=== PATIENT | female | born 1985 | race Caucasian/White ===

== ENCOUNTER 2019-02-20 22:32 | Emergency (ER) | payer MEDICAID, SELFPAY ==
[~2019-02-20] VITALS: Ht 168.9 cm; Wt 67.4 kg
[2019-02-20 22:34] VITALS: BP 126/77
[2019-02-21] MEDS ORDERED: cefTRIAXone SOD 1 GM VIAL (J0696) IM ONE (00:30)
[2019-02-21] MEDS ORDERED: LIDOCAINE 1% SDV 5 ML VIAL DILUENT ONE (00:30)
[2019-02-21] MEDS ORDERED: ACETAMINOPHEN 325 MG TAB PO ONE (01:15)
[2019-02-21] MEDS ORDERED: IBUPROFEN 600 MG TAB PO ONE (01:15)
[2019-02-21] MEDS ORDERED: BACTRIM 160MG/800MG DS TAB PO ONE (01:45)
[2019-02-21] MEDS ORDERED: BACT800T5 PO (01:53)
--- NOTE | 2019-02-21 08:25 | REP ---
LEFT HAND COMPLETE: 02/21/2019. Clinical history: Cellulitis, rule out osteomyelitis. Findings: No prior studies. Four views were provided. There is prominent soft tissue swelling over the dorsal aspect of the hand consistent with the clinical history. I see no destructive bone lesion, fracture, avulsion or erosion distal radius and ulna, carpal bones, metacarpals and phalanges and all of the joints were unremarkable. Impression: 1. Prominent soft tissue swelling dorsal aspect of the hand, no plain radiographic evidence for osteomyelitis. Otherwise negative left hand series. Please recall that osteomyelitis may not be radiographically diagnosed and told 50% of bone structure lost in the region involved. Additional imaging should be guided by clinical considerations. Electronically Signed by Duane Chaves MD 02/21/2019 08:16 A
== END 2019-02-21 02:00 | disposition left against medical advice (07) ==
LOC: M ED 22:32
DX: L03.114 Cellulitis of left upper limb (principal); Z72.0 Tobacco use; Z86.59 Personal history of other mental and behavioral disorders
CPT/HCPCS: 73130; 96372; 99282; J0696

== ENCOUNTER → 2020-10-29 | Outpatient (REF) | payer MEDICAID ==
[~2020-10-29] MED LIST: BACT800T5 PO
== END ==
LOC: M LAB REF 11:40
PROVIDERS: ATTEND Physician Assistant
DX: Z12.4 Encounter for screening for malignant neoplasm of cervix (principal)

== ENCOUNTER → 2021-11-29 | Outpatient (CLI) | payer OTHER ==
[2021-11-29 15:38] LABS: HEMATOCRIT 34.7 % (36.0-47.0); HEMOGLOBIN 11.7 g/dl (12.0-15.5); MEAN CORPUSCULAR HEMOGLOBIN 31.6 pg (27.0-33.0); MEAN CORPUSCULAR HGB CONC 33.7 g/dl (32.0-36.5); MEAN CORPUSCULAR VOLUME 93.8 fl (80.0-96.0); PLATELET COUNT, AUTOMATED 159 10^3/uL (150-450); WHITE BLOOD COUNT 11.1 10^3/uL (4.0-10.0)
[2021-11-29 16:31] LABS: HEPATITIS C VIRUS ABY INDEX 0.1 INDEX (<0.8); HIV 1&2 SCREEN CENTAUR NEGATIVE (NEGATIVE)
[2021-11-29 17:23] LABS: GC DNA AMPLIFICATION NEGATIVE (NEGATIVE)
== END ==
LOC: M PLALAB 12:40
PROVIDERS: ATTEND Obstetrics & Gynecology
DX: O09.32 Supervision of pregnancy with insufficient antenatal care, second trimester (principal)

== ENCOUNTER → 2021-11-29 | Outpatient (CLI) | payer OTHER | LOC: M PLALAB 12:39 | PROVIDERS: ATTEND Advanced Practice Midwife | DX: O09.33 Supervision of pregnancy with insufficient antenatal care, third trimester (principal) ==

== ENCOUNTER → 2021-12-15 | Outpatient (CLI) | payer OTHER | LOC: M WHC 14:46 | PROVIDERS: ATTEND Obstetrics & Gynecology | DX: O09.33 Supervision of pregnancy with insufficient antenatal care, third trimester (principal); Z3A.33 33 weeks gestation of pregnancy ==

== ENCOUNTER 2022-01-28 15:08 | Outpatient (CLI) | payer OTHER ==
[~2022-01-28] VITALS: Ht 167.6 cm; Wt 81.7 kg
[2022-01-28 15:27] VITALS: BP 109/63
[2022-01-28] MEDS ORDERED: GABA-283 PO (15:35)
[2022-01-28] MEDS ORDERED: VENTAER INH (15:35)
[2022-01-28] MEDS ORDERED: BUPR8SUB SL (15:35)
[2022-01-28] MEDS ORDERED: ACET-897 PO (15:36)
[2022-01-28] MEDS ORDERED: HOME MED LIST COMPLETE! XX SCH (15:40)
[2022-01-28] MEDS ORDERED: ACETAMINOPHEN 500 MG TAB PO ONE (16:00)
[2022-01-28 16:27] VITALS: BP 115/62
== END 2022-01-28 16:30 | disposition home or self-care (01) ==
LOC: M LDO 15:08
PROVIDERS: ATTEND Specialist
DX: O26.893 Other specified pregnancy related conditions, third trimester (principal); M54.50 Low back pain, unspecified; O09.513 Supervision of elderly primigravida, third trimester; Z3A.39 39 weeks gestation of pregnancy

== ENCOUNTER → 2022-03-09 | Outpatient (CLI) | payer OTHER ==
[~2022-03-09] MED LIST changes: +ACET-897 PO; +BUPR8SUB SL; +GABA-283 PO; +VENTAER INH
== END ==
LOC: M SOG 16:20
PROVIDERS: ATTEND Orthopaedic Surgery Hand Surgery
DX: S52.501D Unspecified fracture of the lower end of right radius, subsequent encounter for closed fracture with routine healing (principal); S52.611D Displaced fracture of right ulna styloid process, subsequent encounter for closed fracture with routine healing

== ENCOUNTER 2022-08-09 11:27 | Emergency (ER) | payer OTHER ==
[~2022-08-09] VITALS: Ht 172.7 cm; Wt 67.8 kg
[2022-08-09] MEDS ORDERED: BUPR1SUB35 (11:57)
[2022-08-09] MEDS ORDERED: BUPR1FIL35 (11:57)
[2022-08-09] MEDS ORDERED: GABA800T4 (11:57)
[2022-08-09 15:39] LABS: AMPHETAMINES LEVEL URINE NEGATIVE (NEGATIVE); BARBITURATES URINE NEGATIVE (NEGATIVE); BENZODIAZEPINES URINE NEGATIVE (NEGATIVE); CANNABINOIDS URINE NEGATIVE (NEGATIVE); COCAINE METABOLITE URINE NEGATIVE (NEGATIVE); METHADONE URINE NEGATIVE (NEGATIVE); OPIATES URINE NEGATIVE (NEGATIVE); PHENCYCLIDINE URINE NEGATIVE (NEGATIVE)
[2022-08-09 16:00] LABS: BASO # 0.1 10^3/uL (0.0-0.2); BASO % 0.8 % (0.0-1.0); EOS # 0.2 10^3/uL (0.0-0.5); HEMATOCRIT 42.3 % (36.0-47.0); HEMOGLOBIN 13.5 g/dl (12.0-15.5); LYMPH # 3.8 10^3/uL (1.5-5.0); LYMPH % 48.1 % (24.0-44.0); MEAN CORPUSCULAR HEMOGLOBIN 29.2 pg (27.0-33.0); MEAN CORPUSCULAR HGB CONC 31.9 g/dl (32.0-36.5); MEAN CORPUSCULAR VOLUME 91.4 fl (80.0-96.0); MONO # 0.4 10^3/uL (0.0-0.8); MONO % 5.5 % (2.0-8.0); NEUTROPHILS # 3.4 10^3/uL (1.5-8.5); NEUTROPHILS % 42.3 % (36.0-66.0); PLATELET COUNT, AUTOMATED 243 10^3/uL (150-450); RED BLOOD COUNT 4.63 10^6/uL (4.00-5.40)
[2022-08-09 16:04] LABS: ETHYL ALCOHOL (ETHANOL) 0.003 % (0.000-0.010); MAGNESIUM LEVEL 1.9 MG/DL (1.8-2.4)
[2022-08-09 16:08] LABS: FREE T4 0.94 NG/DL (0.89-1.76); THYROID STIMULATING HORMONE 0.887 uIU/ML (0.55-4.78)
[2022-08-09 16:10] LABS: BLOOD UREA NITROGEN 10 MG/DL (9-23); CALCIUM LEVEL 8.3 MG/DL (8.5-10.1); CARBON DIOXIDE LEVEL 22 MMOL/L (20-31); CHLORIDE LEVEL 107 MMOL/L (98-107); CREATININE FOR GFR 0.51 MG/DL (0.55-1.30); GLOMERULAR FILTRATION RATE > 60.0 (>60); GLUCOSE, FASTING 81 MG/DL (60-100); POTASSIUM SERUM 5.3 MMOL/L (3.5-5.1); SODIUM LEVEL 138 MMOL/L (136-145)
[2022-08-09] MEDS ORDERED: PROHANCE 279.3MG/ML 15ML VIAL As Ordered ONE (17:30)
[2022-08-09] MEDS ORDERED: KEPP1TAB PO (20:47)
[2022-08-09 21:26] VITALS: BP 127/67
== END 2022-08-09 21:24 | disposition home or self-care (01) ==
LOC: M ED 11:27
DX: R56.9 Unspecified convulsions (principal); D18.02 Hemangioma of intracranial structures; F11.10 Opioid abuse, uncomplicated; F17.210 Nicotine dependence, cigarettes, uncomplicated; M50.20 Other cervical disc displacement, unspecified cervical region; Z79.899 Other long term (current) drug therapy
CPT/HCPCS: 36415; 70450; 70553; 80048; 80307; 82077; 83735; 84439; 84443; 85025; 99284; A9576

== ENCOUNTER 2022-11-02 12:50 | Emergency (ER) | payer OTHER ==
[~2022-11-02] VITALS: Ht 172.7 cm; Wt 64.1 kg
[~2022-11-02 12:50] MED LIST changes: +BUPR1FIL35; +BUPR1SUB35; +GABA800T4; +KEPP1TAB PO
[2022-11-02] MEDS ORDERED: OXcarbazepine 300 MG TAB PO STA ×2 (13:18→15:32)
[2022-11-02 13:52] LABS: BASO % 0.3 % (0.0-1.0); EOS % 0.1 % (0.0-3.0); HEMATOCRIT 46.8 % (36.0-47.0); HEMOGLOBIN 15.3 g/dl (12.0-15.5); LYMPH # 1.2 10^3/uL (1.5-5.0); LYMPH % 17.1 % (24.0-44.0); MEAN CORPUSCULAR HEMOGLOBIN 30.7 pg (27.0-33.0); MEAN CORPUSCULAR HGB CONC 32.7 g/dl (32.0-36.5); MONO # 0.2 10^3/uL (0.0-0.8); MONO % 3.1 % (2.0-8.0); NEUTROPHILS # 5.4 10^3/uL (1.5-8.5); NEUTROPHILS % 79.1 % (36.0-66.0); PLATELET COUNT, AUTOMATED 218 10^3/uL (150-450); RED BLOOD COUNT 4.98 10^6/uL (4.00-5.40); WHITE BLOOD COUNT 6.8 10^3/uL (4.0-10.0)
[2022-11-02 14:15] VITALS: BP 135/83
[2022-11-02 14:15] LABS: ALBUMIN 4.2 G/DL (3.2-5.2); ALKALINE PHOSPHATASE 107 U/L (46-116); ALT/SGPT 21 U/L (7.0-40); AST/SGOT 22 U/L (<34); BILIRUBIN,DIRECT 0.2 MG/DL (<0.4); BILIRUBIN,TOTAL 0.5 MG/DL (0.3-1.2); BLOOD UREA NITROGEN 8 MG/DL (9-23); CALCIUM LEVEL 9.1 MG/DL (8.5-10.1); CARBON DIOXIDE LEVEL 29 MMOL/L (20-31); CHLORIDE LEVEL 104 MMOL/L (98-107); CREATININE FOR GFR 0.55 MG/DL (0.55-1.30); GLOMERULAR FILTRATION RATE > 60.0 (>60); GLUCOSE, FASTING 92 MG/DL (60-100); POTASSIUM SERUM 3.8 MMOL/L (3.5-5.1); SODIUM LEVEL 139 MMOL/L (136-145); TOTAL PROTEIN 7.3 G/DL (5.7-8.2)
== END 2022-11-02 16:06 | disposition left against medical advice (07) ==
LOC: M ED 12:50 → EDBD 12:50 → M ED 16:06
DX: R56.9 Unspecified convulsions (principal); Z53.9 Procedure and treatment not carried out, unspecified reason; F11.10 Opioid abuse, uncomplicated; Z79.899 Other long term (current) drug therapy

== ENCOUNTER 2022-11-20 16:43 | Inpatient (IN) | payer OTHER ==
[~2022-11-20] VITALS: Ht 172.7 cm; Wt 64.1 kg
[~2022-11-20 16:43] MED LIST changes: -BUPR1FIL35; +BUPR1FIL35 SL; -BUPR1SUB35; +BUPR1SUB35 SL; -GABA800T4; +GABA800T4 PO
[2022-11-20 17:24] LABS: BASO # 0.1 10^3/uL (0.0-0.2); EOS # 0.2 10^3/uL (0.0-0.5); EOS % 2.9 % (0.0-3.0); HEMOGLOBIN 14.4 g/dl (12.0-15.5); LYMPH % 36.6 % (24.0-44.0); MEAN CORPUSCULAR HEMOGLOBIN 31.5 pg (27.0-33.0); MEAN CORPUSCULAR HGB CONC 33.5 g/dl (32.0-36.5); MEAN CORPUSCULAR VOLUME 94.1 fl (80.0-96.0); MONO # 0.6 10^3/uL (0.0-0.8); MONO % 7.6 % (2.0-8.0); NEUTROPHILS # 4.2 10^3/uL (1.5-8.5); NEUTROPHILS % 51.8 % (36.0-66.0); PLATELET COUNT, AUTOMATED 278 10^3/uL (150-450); RED BLOOD COUNT 4.57 10^6/uL (4.00-5.40); WHITE BLOOD COUNT 8.1 10^3/uL (4.0-10.0)
[2022-11-20 17:52] LABS: RSV AMPLIFICATION NEGATIVE (NEGATIVE)
[2022-11-20 17:53] LABS: ETHYL ALCOHOL (ETHANOL) < 0.003 % (0.000-0.010)
[2022-11-20 17:54] LABS: ACETAMINOPHEN LEVEL < 2.0 UG/ML (10.0-20.0)
[2022-11-20 17:55] LABS: ALBUMIN 4.3 G/DL (3.2-5.2); ALKALINE PHOSPHATASE 104 U/L (46-116); ALT/SGPT 22 U/L (7.0-40); AST/SGOT 22 U/L (<34); BILIRUBIN,DIRECT 0.2 MG/DL (<0.4); BILIRUBIN,TOTAL 0.5 MG/DL (0.3-1.2); BLOOD UREA NITROGEN 13 MG/DL (9-23); CALCIUM LEVEL 9.1 MG/DL (8.5-10.1); CARBON DIOXIDE LEVEL 30 MMOL/L (20-31); CHLORIDE LEVEL 107 MMOL/L (98-107); CPK CREATINE PHOSPHOKINASE 299 U/L (34-145); CREATININE FOR GFR 0.66 MG/DL (0.55-1.30); GLOMERULAR FILTRATION RATE > 60.0 (>60); GLUCOSE, FASTING 65 MG/DL (60-100); HCG, SERUM QUALITATIVE NEGATIVE (NEGATIVE); POTASSIUM SERUM 4.1 MMOL/L (3.5-5.1); SALICYLATE LEVEL < 3.0 MG/DL (<30); SODIUM LEVEL 141 MMOL/L (136-145); TOTAL PROTEIN 7.3 G/DL (5.7-8.2)
[2022-11-20 17:58] LABS: THYROID STIMULATING HORMONE 1.539 uIU/ML (0.55-4.78)
[2022-11-20 23:39] LABS: BARBITURATES URINE NEGATIVE (NEGATIVE); BENZODIAZEPINES URINE NEGATIVE (NEGATIVE); CANNABINOIDS URINE NEGATIVE (NEGATIVE); METHADONE URINE NEGATIVE (NEGATIVE); OPIATES URINE NEGATIVE (NEGATIVE); PHENCYCLIDINE URINE NEGATIVE (NEGATIVE)
[2022-11-20 23:46] LABS: AMPHETAMINES LEVEL URINE POSITIVE (NEGATIVE); COCAINE METABOLITE URINE POSITIVE (NEGATIVE)
[2022-11-20] MEDS ORDERED: OXCA600T8 PO (23:49)
[2022-11-20] MEDS ORDERED: HOME MED LIST COMPLETE! XX SCH (23:50)
[2022-11-21] MEDS ORDERED: MOM 30ML SUSPENSION UDC PO PRN (02:30)
[2022-11-21] MEDS ORDERED: ACETAMINOPHEN TAB 650MG DOSE (2X325MG) PO PRN (02:30)
[2022-11-21] MEDS ORDERED: MAALOX 30 ML SUSP *UDC PO PRN (02:30)
[2022-11-21 03:35] VITALS: BP 109/73
[2022-11-21 07:14] LABS: GC DNA AMPLIFICATION NEGATIVE (NEGATIVE)
[2022-11-21] MEDS: NICOTINE 21MG/24HR 1 EA TRANSDERMAL TD SCH (09:14)
[2022-11-21] MEDS ORDERED: NICOTINE POLACRILEX 2 MG GUM PO ONE (13:40)
[2022-11-21] MEDS: CLOTRIMAZOLE 1% VAG CR 45 GM TOP SCH ×2 (13:40→20:40)
[2022-11-21] MEDS ORDERED: EXCEDRIN MIGRAINE TABLET PO PRN (13:40)
[2022-11-21] MEDS: OXcarbazepine 300 MG TAB PO SCH ×2 (14:13→20:38)
[2022-11-21] MEDS: PHENAZOPYRIDINE 100 MG TAB PO SCH ×2 (15:54→20:38)
[2022-11-21] MEDS: GABAPENTIN 400MG CAP PO PRN ×2 (15:58→20:38)
[2022-11-21 16:49] VITALS: BP 108/67
[2022-11-21] MEDS ORDERED: OXcarbazepine 300 MG TAB PO SCH (21:00)
[2022-11-22] MEDS: GABAPENTIN 400MG CAP PO PRN ×3 (02:40→18:06)
[2022-11-22 06:48] VITALS: BP 142/84
[2022-11-22] MEDS: CLOTRIMAZOLE 1% VAG CR 45 GM TOP SCH ×2 (09:00→20:45)
[2022-11-22] MEDS: NICOTINE 21MG/24HR 1 EA TRANSDERMAL TD SCH (09:00)
[2022-11-22] MEDS: PHENAZOPYRIDINE 100 MG TAB PO SCH ×3 (09:26→20:43)
[2022-11-22] MEDS: OXcarbazepine 300 MG TAB PO SCH ×2 (09:26→20:42)
[2022-11-22 18:01] VITALS: BP 124/72
[2022-11-22] MEDS: NICOTINE POLACRILEX 2 MG GUM PO PRN (18:08)
[2022-11-22] MEDS: OLANZapine 5 MG TAB PO SCH (20:42)
[2022-11-22] MEDS: traZODone 50 MG TAB PO PRN (20:42)
[2022-11-23] MEDS: GABAPENTIN 400MG CAP PO PRN ×3 (03:45→20:02)
[2022-11-23 06:18] VITALS: BP 122/76
[2022-11-23] MEDS: NICOTINE POLACRILEX 2 MG GUM PO PRN ×3 (06:25→18:50)
[2022-11-23] MEDS: OXcarbazepine 300 MG TAB PO SCH ×2 (08:54→20:02)
[2022-11-23] MEDS: PHENAZOPYRIDINE 100 MG TAB PO SCH (08:54)
[2022-11-23] MEDS: CLOTRIMAZOLE 1% VAG CR 45 GM TOP SCH ×2 (08:55→20:02)
[2022-11-23] MEDS: NICOTINE 21MG/24HR 1 EA TRANSDERMAL TD SCH (08:55)
[2022-11-23 18:56] VITALS: BP 138/70
[2022-11-23] MEDS: traZODone 50 MG TAB PO PRN (20:02)
[2022-11-23] MEDS: OLANZapine 5 MG TAB PO SCH (20:02)
[2022-11-24] MEDS: NICOTINE POLACRILEX 2 MG GUM PO PRN ×2 (04:08→12:02)
[2022-11-24] MEDS: GABAPENTIN 400MG CAP PO PRN ×2 (04:08→10:54)
[2022-11-24 06:07] VITALS: BP 131/73
[2022-11-24] MEDS: CLOTRIMAZOLE 1% VAG CR 45 GM TOP SCH (07:47)
[2022-11-24] MEDS: NICOTINE 21MG/24HR 1 EA TRANSDERMAL TD SCH (07:47)
[2022-11-24] MEDS: OXcarbazepine 300 MG TAB PO SCH (07:49)
[2022-11-24] MEDS ORDERED: CLOT7CR TOP (12:00)
[2022-11-24] MEDS ORDERED: OXCA600T8 PO ×2 (12:00→12:03)
[2022-11-24] MEDS ORDERED: GABA800T4 PO (12:00)
[2022-11-24] MEDS ORDERED: ABIL1TAB11 PO (12:00)
[2022-11-24] MEDS ORDERED: OLAN1TAB16 PO (13:01)
== END 2022-11-24 15:00 | disposition home or self-care (01) | DRG 776 ==
LOC: M ED 16:43 → M ED INP 11-21 02:29 → M PSY 11-21 03:27
PROVIDERS: ADMIT Psychiatry & Neurology Psychiatry; ATTEND Psychiatry & Neurology Psychiatry
DX: F15.959 Other stimulant use, unspecified with stimulant-induced psychotic disorder, unspecified (principal); R45.851 Suicidal ideations; F17.210 Nicotine dependence, cigarettes, uncomplicated; G40.909 Epilepsy, unspecified, not intractable, without status epilepticus; B37.31 Acute candidiasis of vulva and vagina; Z71.6 Tobacco abuse counseling; Z20.822 Contact with and (suspected) exposure to COVID-19; Z79.899 Other long term (current) drug therapy

== ENCOUNTER 2022-11-30 10:08 | Inpatient (IN) | payer OTHER ==
[~2022-11-30] VITALS: Ht 172.7 cm; Wt 68.2 kg
[~2022-11-30 10:08] MED LIST changes: +ABIL1TAB11 PO; +CLOT7CR TOP; +OLAN1TAB16 PO; +OXCA600T8 PO
[2022-11-30] MEDS ORDERED: LORazepam 2 MG TAB PO ONE (10:15)
[2022-11-30] MEDS ORDERED: OLANZapine ORAL DISINTEGRATING TAB 5MG PO ONE (10:15)
[2022-11-30 10:42] LABS: HEMATOCRIT 42.2 % (36.0-47.0); HEMOGLOBIN 13.8 g/dl (12.0-15.5); MEAN CORPUSCULAR HEMOGLOBIN 31.5 pg (27.0-33.0); MEAN CORPUSCULAR HGB CONC 32.7 g/dl (32.0-36.5); MEAN CORPUSCULAR VOLUME 96.3 fl (80.0-96.0); PLATELET COUNT, AUTOMATED 218 10^3/uL (150-450); RED BLOOD COUNT 4.38 10^6/uL (4.00-5.40); WHITE BLOOD COUNT 6.4 10^3/uL (4.0-10.0)
[2022-11-30 11:08] LABS: ETHYL ALCOHOL (ETHANOL) < 0.003 % (0.000-0.010)
[2022-11-30 11:09] LABS: BARBITURATES URINE NEGATIVE (NEGATIVE); BENZODIAZEPINES URINE NEGATIVE (NEGATIVE); CANNABINOIDS URINE NEGATIVE (NEGATIVE); METHADONE URINE NEGATIVE (NEGATIVE); OPIATES URINE NEGATIVE (NEGATIVE); PHENCYCLIDINE URINE NEGATIVE (NEGATIVE)
[2022-11-30 11:10] LABS: ALBUMIN 3.7 G/DL (3.2-5.2); ALKALINE PHOSPHATASE 80 U/L (46-116); ALT/SGPT 18 U/L (7.0-40); AST/SGOT 29 U/L (<34); BILIRUBIN,DIRECT < 0.1 MG/DL (<0.4); BILIRUBIN,TOTAL 0.2 MG/DL (0.3-1.2); BLOOD UREA NITROGEN 10 MG/DL (9-23); CALCIUM LEVEL 8.8 MG/DL (8.5-10.1); CARBON DIOXIDE LEVEL 24 MMOL/L (20-31); CHLORIDE LEVEL 111 MMOL/L (98-107); CREATININE FOR GFR 0.59 MG/DL (0.55-1.30); GLOMERULAR FILTRATION RATE > 60.0 (>60); GLUCOSE, FASTING 85 MG/DL (60-100); SALICYLATE LEVEL < 3.0 MG/DL (<30); SODIUM LEVEL 142 MMOL/L (136-145); TOTAL PROTEIN 6.9 G/DL (5.7-8.2)
[2022-11-30 11:11] LABS: ACETAMINOPHEN LEVEL < 2.0 UG/ML (10.0-20.0)
[2022-11-30 11:14] LABS: AMPHETAMINES LEVEL URINE POSITIVE (NEGATIVE); COCAINE METABOLITE URINE POSITIVE (NEGATIVE)
[2022-11-30 12:55] LABS: HCG, SERUM QUALITATIVE NEGATIVE (NEGATIVE)
[2022-11-30] MEDS ORDERED: GABA800T4 PO (19:58)
[2022-11-30] MEDS ORDERED: OXCA600T8 PO (19:58)
[2022-11-30] MEDS ORDERED: OLAN1TAB16 PO (19:58)
[2022-11-30] MEDS ORDERED: CLOT45CR8 TOP (19:58)
[2022-11-30] MEDS ORDERED: ARIP1TAB6 PO (20:01)
[2022-11-30] MEDS ORDERED: BUPR1SUB35 PO (20:01)
[2022-11-30] MEDS ORDERED: HOME MED LIST COMPLETE! XX SCH (20:05)
[2022-11-30] MEDS ORDERED: MAALOX 30 ML SUSP *UDC PO PRN (21:25)
[2022-11-30] MEDS ORDERED: traZODone 50 MG TAB PO PRN (21:25)
[2022-11-30] MEDS ORDERED: ACETAMINOPHEN TAB 650MG DOSE (2X325MG) PO PRN (21:25)
[2022-11-30] MEDS ORDERED: MOM 30ML SUSPENSION UDC PO PRN (21:25)
[2022-11-30] MEDS: OXcarbazepine 300 MG TAB PO SCH ×2 (21:28→21:35)
[2022-11-30] MEDS: OLANZapine ORAL DISINTEGRATING TAB 5MG PO ONE ×2 (21:29→21:35)
[2022-11-30] MEDS: LORazepam 2 MG TAB PO ONE ×2 (21:29→21:35)
[2022-11-30] MEDS ORDERED: MIDAZOLAM INJ 2MG/2ML VIAL IM ONE (21:30)
[2022-11-30] MEDS ORDERED: diphenhydrAMINE 50MG/ML VIAL IM ONE (21:30)
[2022-11-30] MEDS ORDERED: HALOPERIDOL 5MG/ML 1ML VIAL IM ONE (21:30)
[2022-12-01] MEDS: OXcarbazepine 300 MG TAB PO SCH ×5 (02:55→20:07)
[2022-12-01] MEDS: CLOTRIMAZOLE 1% TOPICAL CREAM 30GM TOP SCH ×2 (08:22→20:06)
[2022-12-01] MEDS ORDERED: IBUPROFEN 400MG TAB PO PRN (10:40)
[2022-12-01] MEDS ORDERED: IBUPROFEN 600MG TAB PO PRN (11:45)
[2022-12-01] MEDS: BUPRENORPHINE/NALOXONE 8-2MG SUBLINGUAL TABLET(SUBOXONE) SL SCH (12:14)
[2022-12-01] MEDS: LIDOCAINE 5% OINT 30GM TUBE TOP SCH ×3 (12:16→20:05)
[2022-12-01] MEDS: NICOTINE POLACRILEX 2 MG GUM PO PRN (17:09)
[2022-12-01] MEDS: OLANZapine ORAL DISINTEGRATING TAB 5MG PO PRN (17:53)
[2022-12-01] MEDS: OLANZapine 5 MG TAB PO SCH (20:07)
[2022-12-02] MEDS: OLANZapine ORAL DISINTEGRATING TAB 5MG PO PRN ×2 (00:13→06:28)
[2022-12-02] MEDS: NICOTINE POLACRILEX 2 MG GUM PO PRN (00:13)
[2022-12-02] MEDS: OXcarbazepine 300 MG TAB PO SCH ×2 (08:43→20:29)
[2022-12-02] MEDS: BUPRENORPHINE/NALOXONE 8-2MG SUBLINGUAL TABLET(SUBOXONE) SL SCH ×2 (08:43→09:11)
[2022-12-02] MEDS: LIDOCAINE 5% OINT 30GM TUBE TOP SCH ×4 (09:00→20:29)
[2022-12-02] MEDS: CLOTRIMAZOLE 1% TOPICAL CREAM 30GM TOP SCH ×2 (09:00→20:31)
[2022-12-02] MEDS ORDERED: traZODone 100 MG TAB PO PRN (13:55)
[2022-12-02 18:00] VITALS: BP 115/58
[2022-12-02] MEDS: OLANZapine 5 MG TAB PO SCH (20:30)
[2022-12-03] MEDS: OLANZapine ORAL DISINTEGRATING TAB 5MG PO PRN ×2 (02:21→21:06)
[2022-12-03 06:38] VITALS: BP 101/60
[2022-12-03] MEDS: OXcarbazepine 300 MG TAB PO SCH ×2 (08:06→20:01)
[2022-12-03] MEDS: NICOTINE POLACRILEX 2 MG GUM PO PRN ×2 (08:07→21:07)
[2022-12-03] MEDS: CLOTRIMAZOLE 1% TOPICAL CREAM 30GM TOP SCH ×2 (08:08→20:01)
[2022-12-03] MEDS: LIDOCAINE 5% OINT 30GM TUBE TOP SCH ×4 (08:08→20:02)
[2022-12-03] MEDS: BUPRENORPHINE/NALOXONE 8-2MG SUBLINGUAL TABLET(SUBOXONE) SL SCH (08:11)
[2022-12-03] MEDS ORDERED: diphenhydrAMINE 25MG CAP PO PRN (10:45)
[2022-12-03 17:32] VITALS: BP 131/61
[2022-12-03] MEDS: OLANZapine 5 MG TAB PO SCH (20:01)
[2022-12-04] MEDS: OLANZapine ORAL DISINTEGRATING TAB 5MG PO PRN ×2 (01:04→08:55)
[2022-12-04] MEDS: NICOTINE POLACRILEX 2 MG GUM PO PRN ×2 (06:26→10:32)
[2022-12-04 07:01] VITALS: BP 103/59
[2022-12-04] MEDS: BUPRENORPHINE/NALOXONE 8-2MG SUBLINGUAL TABLET(SUBOXONE) SL SCH (08:17)
[2022-12-04] MEDS: OXcarbazepine 300 MG TAB PO SCH (08:18)
[2022-12-04] MEDS: LIDOCAINE 5% OINT 30GM TUBE TOP SCH (08:23)
[2022-12-04] MEDS: CLOTRIMAZOLE 1% TOPICAL CREAM 30GM TOP SCH (09:00)
== END 2022-12-04 12:52 | disposition home or self-care (01) | DRG 753 ==
LOC: M ED 10:08 → M ED INP 20:33 → M PSY 12-01 00:54
PROVIDERS: ADMIT Student in an Organized Health Care Education/Training Program; ATTEND Psychiatry & Neurology Psychiatry
DX: F39 Unspecified mood [affective] disorder (principal); F17.210 Nicotine dependence, cigarettes, uncomplicated; F15.90 Other stimulant use, unspecified, uncomplicated; G40.909 Epilepsy, unspecified, not intractable, without status epilepticus; Z20.822 Contact with and (suspected) exposure to COVID-19; Z79.899 Other long term (current) drug therapy

== ENCOUNTER 2023-01-04 01:30 | Emergency (ER) | payer OTHER ==
[~2023-01-04] VITALS: Ht 172.7 cm; Wt 65.0 kg
[~2023-01-04 01:30] MED LIST changes: +ARIP1TAB6 PO; +BUPR1SUB35 PO; +CLOT45CR8 TOP
[2023-01-04 02:27] VITALS: BP 132/84
== END 2023-01-04 02:35 | disposition home or self-care (01) ==
LOC: M ED 01:30 → EDBD 01:30 → M ED 02:35
DX: Z76.5 Malingerer [conscious simulation] (principal); R06.00 Dyspnea, unspecified; F19.159 Other psychoactive substance abuse with psychoactive substance-induced psychotic disorder, unspecified; J45.909 Unspecified asthma, uncomplicated; F17.200 Nicotine dependence, unspecified, uncomplicated; Z79.899 Other long term (current) drug therapy

== ENCOUNTER → 2024-08-04 | Outpatient (CLI) | payer OTHER ==
[~2024-08-04] MED LIST changes: +GABA-1635 PO; -GABA-283 PO; +GABA-284 PO; -GABA800T4 PO
== END ==
LOC: M OUTALCOH 13:05
PROVIDERS: ATTEND Psychiatry & Neurology Psychiatry
DX: Z03.89 Encounter for observation for other suspected diseases and conditions ruled out (principal); F17.200 Nicotine dependence, unspecified, uncomplicated

== ENCOUNTER 2024-08-14 15:59 | Outpatient (RCR) | payer OTHER | END 2024-09-12 | LOC: M OUTALCOH 15:59 | PROVIDERS: ATTEND Psychiatry & Neurology Psychiatry | DX: Z03.89 Encounter for observation for other suspected diseases and conditions ruled out (principal); F17.200 Nicotine dependence, unspecified, uncomplicated ==